=== PATIENT | male | born 1960 | race Caucasian/White ===

== ENCOUNTER 2021-04-11 18:21 | Emergency (ER) | payer MEDICARE, SELFPAY ==
[2021-04-11 18:30] VITALS: BP 142/68; PULSE 81; RESP 20; TEMP 36.5; O2SAT 100
--- NOTE | 2021-04-11 18:33 | ED.EYEPROB ---
HPI - Eye Problem General Chief complaint: Eye Problems Stated complaint: Poked in eye Time Seen by Provider: 04/11/21 18:34 Source: patient and RN notes reviewed History of Present Illness HPI Narrative: Patient is 60-year-old male who presents the urgent care with complaints of right eye injury. Patient states that 2 days ago a tree branch hit him in the right eye. States that initially he had extreme pain but has been patching the eye and states that the pain has relieved. Patient denies of any changes in vision. No other acute complaints. States he has been using [id number] eyedrops. No acute distress noted. Patient read the plan of care. Some parts of this dictation were generated by voice recognition software and may contain typographical and/or grammatical inaccuracies. Related Data Home Medications Medication Instructions Recorded Confirmed bupropion HCl mg PO 04/11/21 clonidine HCl 04/11/21 dextroamphetamine-amphetamine 04/11/21 gabapentin 04/11/21 lisdexamfetamine [Vyvanse] mg 04/11/21 Allergies Allergy/AdvReac Type Severity Reaction Status Date / Time Opioids - Morphine Analogues AdvReac Unknown NAUSEA Verified 04/11/21 18:40 Penicillins AdvReac Unknown NAUSEA Verified 04/11/21 18:40 Review of Systems Review of Systems: CONSTITUTIONAL: Denies fever, chills, or sweats. EYES: Denies visual changes, redness, or discharge. Reports of redness due to injury to the right eye ENT: Denies rhinorrhea, congestion, sore throat, or otalgia. CARDIOVASCULAR: Denies chest pain, palpitations, or edema. RESPIRATORY: Denies cough or dyspnea. GASTROINTESTINAL: Denies abdominal pain, nausea, vomiting, or diarrhea. GENITOURINARY: Denies dysuria or hematuria. SKIN: Denies rash or itching. MUSCULOSKELETAL: Denies back pain, joint pain, or myalgia. NEUROLOGIC: Denies headache, numbness, or weakness. All other systems reviewed are negative, except as documented in HPI. PMFSH Comments At the time of my signature, I reviewed and agree with the nursing past medical, surgical, social, and family history. There is no relevant family history pertinent to the patient complaint. Exam Narrative: GENERAL: This is a well-nourished, well-developed patient, in no apparent distress. HEAD: normocephalic, atraumatic. EYES: PERRL. Large subconjunctival hemorrhage to the lateral aspect of the left sclera. EARS: External ears normal NOSE: External nose normal with no obvious nasal discharge, nares without redness, no rhinorrhea. THROAT: Mucous membranes moist NECK: Neck supple SKIN: warm, intact with no suspicious lesions or rash, good texture and turgor. NEURO: awake, alert, and oriented to person, place and time. There were no obvious focal neurologic abnormalities. EXTREMITIES: No clubbing, cyanosis, or edema. Course Course Level of Care: Express Care Visit Vital Signs Vital signs: Vital Signs Temperature 97.7 F 04/11/21 18:30 Pulse Rate 81 04/11/21 18:30 Respiratory Rate 20 04/11/21 18:30 Blood Pressure 142/68 H 04/11/21 18:30 Pulse Oximetry 100 04/11/21 18:30 Temperature 97.7 F 04/11/21 18:30 Pulse Rate 81 04/11/21 18:30 Respiratory Rate 20 04/11/21 18:30 Blood Pressure 142/68 H 04/11/21 18:30 Pulse Oximetry 100 04/11/21 18:30 Reviewed-patient is informed that they may have pre-hypertension or hypertension based on a blood pressure reading in the department. I recommend the patient call the primary care provider listed on their discharge instructions or a physician of their choice this week to arrange follow-up for further evaluation of possible pre-hypertension or hypertension. MDM - Eye Problem MDM Narrative Medical decision making narrative: Advised the patient to use the medicated drops to the right eye as directed. Wear sunglasses for protectant and try to stay out of direct sunlight or outside in the wound. If you develop any increase in symptoms associated with severe pain, c
== END 2021-04-11 18:50 | disposition home or self-care (01) ==
PROVIDERS: Emergency Provider Nurse Practitioner Family; PCP Nurse Practitioner Family
DX: S05.01XA Injury of conjunctiva and corneal abrasion without foreign body, right eye, initial encounter (principal); W22.8XXA Striking against or struck by other objects, initial encounter; H11.31 Conjunctival hemorrhage, right eye; E78.00 Pure hypercholesterolemia, unspecified; I10 Essential (primary) hypertension; J44.9 Chronic obstructive pulmonary disease, unspecified; K21.9 Gastro-esophageal reflux disease without esophagitis; M19.90 Unspecified osteoarthritis, unspecified site; G62.9 Polyneuropathy, unspecified
CPT/HCPCS: 99203; G0463